=== PATIENT | female | born 1990 | race American Indian/Alaskan Native ===

== ENCOUNTER 2020-02-22 14:37 | Outpatient (CLI) | payer OTHER | END 2020-02-22 16:42 | disposition home or self-care (01) | LOC: NST 14:37 | PROVIDERS: ATTEND Obstetrics & Gynecology Maternal & Fetal Medicine | DX: Z34.83 Encounter for supervision of other normal pregnancy, third trimester (principal) ==

== ENCOUNTER 2020-04-17 14:30 | Inpatient (IN) | payer OTHER ==
[~2020-04-17] VITALS: Ht 157.5 cm; Wt 61.7 kg
[2020-05-01] MEDS ORDERED: FERROUS SULFAT325 MG PO (10:01)
== END 2020-05-03 14:04 | disposition home or self-care (01) | DRG 807 ==
LOC: EDSTATUS 14:30 → LDR 04-22 14:30 → OB/GYN 05-01 05:56 → LDR 05-01 05:56 → OB/GYN 05-01 19:31
PROVIDERS: ADMIT Obstetrics & Gynecology Maternal & Fetal Medicine; ATTEND Obstetrics & Gynecology Maternal & Fetal Medicine
PROC: 10E0XZZ Delivery of Products of Conception, External Approach (ICD-10-PCS; principal; 2020-05-01)
PROC: 4A1HXFZ Monitoring of Products of Conception, Cardiac Rhythm, External Approach (ICD-10-PCS; 2020-05-01)
PROC: 3E033VJ Introduction of Other Hormone into Peripheral Vein, Percutaneous Approach (ICD-10-PCS; 2020-05-01)
DX: O70.0 First degree perineal laceration during delivery (principal); Z37.0 Single live birth; Z3A.39 39 weeks gestation of pregnancy; Z20.828 Contact with and (suspected) exposure to other viral communicable diseases

== ENCOUNTER 2023-02-08 14:04 | Inpatient (IN) | payer OTHER ==
[~2023-02-08] VITALS: Ht 157.5 cm; Wt 60.8 kg
[~2023-02-08 14:04] MED LIST: FERROUS SULFAT325 MG PO
== END 2023-02-12 13:52 | disposition home or self-care (01) | DRG 798 ==
LOC: LDR 02-10 05:26 → OB/GYN 02-10 05:26
PROVIDERS: ADMIT Obstetrics & Gynecology; ATTEND Obstetrics & Gynecology
PROC: 0UB70ZZ Excision of Bilateral Fallopian Tubes, Open Approach (ICD-10-PCS; 2023-02-10)
PROC: 4A1HXCZ Monitoring of Products of Conception, Cardiac Rate, External Approach (ICD-10-PCS; 2023-02-10)
PROC: 10E0XZZ Delivery of Products of Conception, External Approach (ICD-10-PCS; principal; 2023-02-10 18:00)
DX: O80 Encounter for full-term uncomplicated delivery (principal); Z37.0 Single live birth; Z30.2 Encounter for sterilization; Z3A.40 40 weeks gestation of pregnancy; Z20.822 Contact with and (suspected) exposure to COVID-19